=== PATIENT | female | born 1975 | race Caucasian/White ===

== ENCOUNTER → 2019-12-17 18:29 | Outpatient (CLI) | payer BC, SELFPAY ==
--- NOTE | ~2019-12-17 | MM_ITS ---
EXAMINATION: MM screening [facility] BI w joanie HISTORY: Screening mammogram TECHNIQUE: Craniocaudal and mediolateral oblique 3-D tomosynthesis images were obtained and synthetic 2-D images were generated. CAD analysis was submitted and interpreted. COMPARISON: Comparison to multiple prior studies sequentially, with oldest reviewed study dated 02/2012. BREAST PARENCHYMAL COMPOSITION: There are scattered areas of fibroglandular density. FINDINGS: There is no evidence of suspicious mass, calcification, or architectural distortion to sugg est malignancy in either breast. There has been no suspicious interval change. IMPRESSION: 1. No mammographic evidence of malignancy. 2. Recommend routine screening mammography in one year. BI-RADS Category 1: Negative Reviewed, dictated and finalized at location A.
== END ==
PROVIDERS: Visit Provider Obstetrics & Gynecology
DX: Z12.31 Encounter for screening mammogram for malignant neoplasm of breast (principal)
CPT/HCPCS: 77063; 77067

== ENCOUNTER → 2021-04-18 16:13 | Outpatient (CLI) | payer BC, SELFPAY ==
--- NOTE | ~2021-04-18 | MM_ITS ---
EXAMINATION: MM screening [facility] BI w joanie HISTORY: Screening mammogram TECHNIQUE: Craniocaudal and mediolateral oblique 3-D tomosynthesis images were obtained and synthetic 2-D images were generated. CAD analysis was submitted and interpreted. COMPARISON: 12/17/2019, 11/20/2018, 11/10/2017 BREAST PARENCHYMAL COMPOSITION: There are scattered areas of fibroglandular density. FINDINGS: There is no evidence of suspicious mass, calcification, or architectural distortion to sugg est malignancy in either breast. There has been no suspicious interval change. IMPRESSION: 1. No mammographic evidence of malignancy. 2. Recommend routine screening mammography in one year. BI-RADS Category 1: Negative Reviewed, dictated and finalized at location A.
== END ==
PROVIDERS: PCP Internal Medicine; Visit Provider Obstetrics & Gynecology
DX: Z12.31 Encounter for screening mammogram for malignant neoplasm of breast (principal)
CPT/HCPCS: 77063; 77067

== ENCOUNTER 2022-01-28 12:27 | Outpatient (CLI) | payer BC, SELFPAY ==
--- NOTE | 2022-01-28 12:40 | ECG_ITS ---
Measurements Intervals [place] Rate: 98 P: 58 DC: 127 QRS: 38 QRSD: 81 T: 70 QT: 344 QTc: 440 Interpretive Statements SINUS RHYTHM WITHIN NORMAL LIMITS NO PREVIOUS ECG AVAILABLE FOR COMPARISON Electronically Signed On 01-28-2022 16:29:51 CDT by Jacinto Vizcaino M.D.
== END 2022-01-28 12:28 | disposition home or self-care (01) ==
LOC: ANHSURGERY 12:30
PROVIDERS: PCP Internal Medicine; Visit Provider Obstetrics & Gynecology
DX: N92.0 Excessive and frequent menstruation with regular cycle (principal); F17.200 Nicotine dependence, unspecified, uncomplicated; Z01.818 Encounter for other preprocedural examination
CPT/HCPCS: 36415; 86850; 86900; 86901; 93005

== ENCOUNTER 2022-02-05 00:20 | Day surgery (SDC) | payer BC, SELFPAY ==
[2022-01-25 13:06] VITALS: BMI 21.7
--- NOTE | 2022-01-25 13:07 | PC.NURSE ---
Addendum entered by June Zazueta RN 01/28/22 10:15: MAY TAKE BUDESONIDE WITH A SMALL SIP OF WATER THE MORNING OF SURGERY. MAY TAKE VALACYCLOVIR IF NEEDED. Original Note: Report to the Outpatient Waiting Room, entrance under the green pavilion located off [facility], at time _0730___ on date _02/05/22 . OR Time: . - You and your visitor will be asked a series of questions to screen for COVID 19 for your protection. - A mask is required within the hospital. Preoperative COVID Testing Requirements: No COVID Test needed if: (proof is required; if not received patient will have Rapid Test prior to entry) - Patient has received COVID Vaccine at least 14 days prior to procedure date or - Patient has positive COVID test result within last 90 days of surgery date. COVID Test needed if above criteria is not met If not COVID vaccinated a COVID test must be conducted within 72 hours of surgery and patient is asked to isolate self from time of testing until procedure. You will go to the [facility] for your COVID testing. The [facility] site is located at the corner of [address] [facility]. You will only be called if COVID results are positive and your surgeon may reschedule your elective surgery date. Patients may have clear liquids (water, carbonated beverages, clear teas, apple juice) until 3 hours prior to surgery with a maximum of 20 ounces. - No food from midnight until time of surgery - Infants may have breast milk until 4 hours before surgery, infant formula 6 hours prior to surgery. - Children will be allowed to drink immediately following surgery. If applicable, please bring a bottle or sippy cup to assist with drinking. Juice, water, soda, and popsicles are readily available. For infants on formula, please bring formula the day of surgery. Pacifiers are allowed. Take the following medications with a SIP of water the morning of surgery: SERTRALINE, XANAX AND PAIN PILL IF NEEDED Medications to discontinue per physician ____NONE Date to take last dose N/A Please no make-up, nail dutch, hairspray, perfume, deodorant, or body powder the day of surgery. No jewelry (including any body piercings) or valuables the day of surgery, leave them at home. Please take a shower or bath the night before, or the morning of, surgery with an antibacterial soap. Wear comfortable, loose fitting clothing. Children are encouraged to wear pajamas. - Jewelry must be removed prior to entering the operating room. Rings and piercings that are not removed may be cut off. - The hospital will not accept responsibility for valuables. - Please leave all valuables, including medications, at home the day of surgery. If you are going home after surgery, a licensed funeral car driver must drive you home. - NO public transportation without another adult. - We recommend that an adult stay with you for 24 hours following discharge. - We also recommend that you do not drive, make important decision, drink alcoholic beverages, or take any drugs that were not prescribed by your health care provider for at least 24 hours after your discharge time. For Pediatric surgeries, we recommend two adults accompany the child home (only one inside the building at this time). One visitor will be allowed to accompany the patient into the hospital. Patients visitor will be instructed to remain with patient at all times or leave the building. We will allow the visitor to come back to the postoperative area when patient is ready. Follow any additional instructions given to you from your surgeon. Telephone instructions given to __PATIENT and asked if any additional questions and then verbalized understanding. Patient advised to call surgeon office or pre surgery nurse liaison [phone] if any additional questions.
[2022-02-05] VITALS (10 sets, daily range): BP systolic 111–147; BP diastolic 66–89; PULSE 54–86; RESP 12–20; TEMP 36–36.9; O2SAT 96–100
--- NOTE | 2022-02-05 08:33 | WPDANESEPPF ---
Anes - Initial Pre Proc Eval Procedure: Operation Date: 02/05/22 09:30 Proposed Procedures p Total Laparoscopic Hysterectomy, Right Salpingo Oophorectomy - Rich Garcia MD Date/Time: 02/05/22 08:33 Surgeon: Rich Garcia MD Pre Op Diagnosis: menorrhaghia Patient Data Age: 46 Gender: F Height: 1.66 m Weight: 60 kg Allergies Allergy/AdvReac Type Severity Reaction Status Date / Time Sulfa (Sulfonamide Allergy Severe RASH Verified 01/25/22 12:54 Antibiotics) Home Medications Medication Instructions Recorded Confirmed Type budesonide 3 mg 6 mg PO DAILY 30 Days #60 ea 12/27/21 01/25/22 Rx capsule,delayed,extended release valacyclovir 500 mg tablet 500 mg PO PRN PRN tablet 12/27/21 01/25/22 History alprazolam 1 mg tablet 1 mg PO BID PRN 01/15/22 01/25/22 History hydrocodone 7.5 mg-acetaminophen 1 tablet PO BID PRN 01/15/22 01/25/22 History 300 mg tablet sertraline 50 mg PO DAILY 01/25/22 01/25/22 History amoxicillin 500 mg PO QID 02/05/22 02/05/22 History Patient hx anesthesia problems: none Family hx anesthesia problems: none Results Review: All pre-operative results and documents have been reviewed as part of the pre-operative evaluation. [facility] Past Medical History Medical History Anxiety Depression Encounter for screening colonoscopy Microscopic colitis Tobacco abuse Surgical History Surgical History H/O colonoscopy H/O esophagogastroduodenoscopy Family History Family History Mother Hypertension Heart disease Father Lung cancer Social History Social History Smoking packs per day: 1 Smoking cigarettes per day: 20.0 Years smoked: 25 Smoking pack-years: 25.00 Smoking status: Current every day smoker Tobacco type: cigarettes Second hand tobacco smoke exposure: Yes Alcohol intake: current Alcohol use details: social Substance use: never Substance use type: marijuana Other substance usage details: DAILY Last use: 01/24/22 Living arrangements: alone Gender identity (if verbalized by the patient): Female Anes - Eval Final PreProcedure Day of Procedure 02/05/22 08:33 Results Review: All pre-operative results and documents have been reviewed as part of the pre-operative evaluation. Informed Consent: The patient's anesthetic plan and its attendant risks and benefits were discussed with the patient/family/POA. Questions were solicited and answers provided to the satisfaction of the patient/family/POA.
[2022-02-05] MEDS: ACETAMINOPHEN 500 MG TABLET 1000 MG PO (08:34)
[2022-02-05] MEDS: KETOROLAC 15 MG/ML VIAL (*BKC) IV PUSH (08:35)
[2022-02-05] MEDS: LACTATED RINGERS 1,000 ML 30 ML IV CONT ×2 (08:44→10:15)
--- NOTE | 2022-02-05 08:51 | WPDHPUPDATE1 ---
History and Physical Update Update Date/Time: 02/05/22 08:51 History and Physical has been reviewed, including an updated exam of the patient. There are NO changes in the patient's condition. Risks, benefits, and alternatives have been discussed and questions answered. Patient agrees to proceed with procedure.
[2022-02-05] MEDS: ceFAZolin 2 GM/D5W 50 ML 2 GM/50 ML BAG IVPB (08:59)
[2022-02-05] MEDS: ceFAZolin SODIUM 1 GM VIAL IRRIGATION (09:36)
--- NOTE | 2022-02-05 10:07 | W.PM.PROC2 ---
Procedure Note - Detailed Date of Procedure 02/05/22 Pre-op Diagnosis menorrhaghia, fibroids Post-op Diagnosis Same Procedure Performed Total laparoscopic hysterectomy. Bilateral salpingectomy and right oophorectomy Surgeon Rich Garcia MD Anesthesia General Indications Myomas and menorrhagia Findings Enlarged fibroid uterus, normal vulva vagina and cervix. Normal appearing ovaries bilaterally, normal-appearing tubes. Description of Procedure This patient was taken to the operating room. She was prepped and draped in the dorsal lithotomy position after induction of general anesthesia. The uterine manipulator and Amy cup were placed. This was done with a speculum and tenaculum. The speculum was placed. The cervix was grasped with a tenaculum. The stay sutures were placed at 3 and 9:00 a.m.. The stay sutures of 0 Vicryl were brought through the appropriately sized Amy cup. The tip of the LUZMA manipulator was placed in the intrauterine cavity. The cup was slid into place around the cervix and into the fornices. It was locked into place. The sutures were then wrapped around the handle and tied under tension. A 5 mm skin incision was made in the left upper quadrant the abdomen. A 5 mm trocar was inserted into the intrauterine cavity under direct visualization of the scope. Pneumoperitoneum was achieved. A left lower quadrant 11 mm incision was made with scalpel. An 11 mm trocar was inserted into the anterior abdominal cavity under direct visualization the scope. A 5 mm infraumbilical incision was made with a scalpel and a 5 mm trocar was inserted the intra-abdominal cavity under direct visualization of the scope. Bilateral ureteral lysis was performed. This was done from the pelvic brim down to the uterine artery. This was done with careful dissection using sharp and blunt dissection. The fallopian tubes were removed bilaterally. The mesosalpinx around the fallopian tubes were cauterized transected with LigaSure cautery. This was done in a bilateral fashion from the ovary to the uterine cornua. The fallopian tube was transected at the uterine cornu and amputated. The tube was taken out the left lower quadrant trocar site. The right ovary was removed. The infundibulopelvic ligaments cauterized. The para ovarian tissue was cauterized. The ovary remained attached to the uterus. It came out with the uterus and cervix. In a stepwise fashion along the lateral aspects of the uterus the round ligament and broad ligaments were cauterized transected down to the level of the uterine arteries. A bladder flap was created in the bladder was moved distally to the end of the cervix and over the Amy cup. The bilateral uterine arteries were cauterized and transected. Colpotomy was then performed. In a circumferential fashion the vagina was transected using unipolar cautery. The incision was made down on the Amy cup. The uterus and cervix were taken out through the vagina. A pneumo occluder was placed in the vagina. The vaginal cuff was closed with a 0 V lock suture in a running fashion. The pelvis was irrigated with copious amounts antibiotic irrigation. The ureters were again examined and found to be intact and flowing freely under the uterine arteries into the bladder. The bladder was intact. It was examined directly. The vagina was irrigated with Betadine solution after removal of the Pneumo occluder. The patient was taken to recovery room. She was stable condition. Sponge lap and needle counts were correct x2. Estimated Blood Loss 30 Drains Yes Packing No Pathology Yes Complications No immediate complications Condition Stable Disposition Floor
[2022-02-05] MEDS: fentaNYL CITRATE INJ (*CRX) 100 MCG/2 ML VIAL 25 MCG IV PUSH ×8 (10:33→11:16)
--- NOTE | 2022-02-05 11:38 | PC.NURSE ---
This patient, Karma Talbert, was received from PACU on 02/05/22 at 1138. Patient/family oriented to unit policies and routines
[2022-02-05] MEDS: KETOROLAC 30 MG/ML VIAL (*BKC) IV PUSH ×2 (12:17→18:39)
[2022-02-05] MEDS: DEXTROSE 5%/0.45% SOD CHL 1,000 ML 125 ML IV CONT ×2 (12:17→19:10)
[2022-02-05] MEDS: HYDROcodone/acetaminophen (*CRX) 10-325 MG TABLET 1 TAB PO ×3 (12:18→20:12)
[2022-02-05] MEDS: MORPHINE SULFATE (*CRX) 2 MG/ML INJ IV PUSH ×3 (14:07→21:07)
[2022-02-06] MEDS: HYDROcodone/acetaminophen (*CRX) 10-325 MG TABLET 1 TAB PO ×2 (00:16→05:16)
[2022-02-06 00:24] VITALS: BP 108/62; PULSE 100; RESP 18; TEMP 36.8; O2SAT 98
[2022-02-06] MEDS: KETOROLAC 30 MG/ML VIAL (*BKC) IV PUSH (02:08)
[2022-02-06] MEDS: DEXTROSE 5%/0.45% SOD CHL 1,000 ML 125 ML IV CONT (04:03)
[2022-02-06 05:00] VITALS: BP 131/76; PULSE 98; RESP 18; TEMP 36.8; O2SAT 95
--- NOTE | 2022-02-06 07:33 | PM.GYNPNOP ---
UNIT SECY - A/P Postoperative Procedures: Procedures Operation Date: 02/05/22 09:30 Actual Procedure Side Surgeon p Total Laparoscopic Hysterectomy, Bilateral Salpingectomy, Right Oophorectomy Not Applicable Rich Garcia MD Postoperative day: 1 Postoperative status: doing well Postoperative plan: see orders Time Spent With Patient Time: Total time spent is greater than 50% in coordination of care (as documented) at patient's floor/unit and/or counseling patient: Time with patient: less than 15 minutes UNIT SEC[facility]- PN:Subj Post-Op Subjective Date/time seen: 02/06/22 07:33 Subjective: patient reports feeling better, patient has no complaints and pain is well controlled Exam Const: General: healthy appearing, comfortable and no acute distress Resp: Auscultation: clear to auscultation bilaterally, no rales, no rhonchi and no wheezes Cardio: Rate: regular rate Heart sounds: no click, no murmurs and no rubs GI: Inspection: non-distended Auscultation: normal bowel sounds Extrem: General: normal to inspection, no pedal edema and no calf tenderness UNIT SECY - PN: Obj Data Vital Signs Vital Signs: Vital Signs - 24 hr 02/05/22 08:30 02/05/22 10:15 02/05/22 10:30 Temperature 97.7 F 98.4 F Pulse Rate 86 60 56 L Respiratory Rate 18 19 16 Blood Pressure 111/66 119/78 127/79 Pulse Oximetry 100 100 98 02/05/22 10:45 02/05/22 11:00 02/05/22 11:15 Temperature Pulse Rate 56 L 55 L 55 L Respiratory Rate 14 12 12 Blood Pressure 134/78 121/76 121/78 Pulse Oximetry 96 98 97 02/05/22 11:25 02/05/22 11:53 02/05/22 15:50 Temperature 97.3 F L 96.8 F L Pulse Rate 58 L 54 L 60 Respiratory Rate 12 18 18 Blood Pressure 136/77 117/77 147/89 H Pulse Oximetry 98 100 02/05/22 19:15 02/06/22 00:24 02/06/22 05:00 Temperature 98.1 F 98.3 F 98.3 F Pulse Rate 81 100 98 Respiratory Rate 20 18 18 Blood Pressure 147/88 H 108/62 131/76 Pulse Oximetry 100 98 95 Intake/Output Intake/Output: Intake & Output 02/03/22 02/04/22 02/05/22 02/06/22 23:59 23:59 23:59 23:59 Intake Total 1950 1150 Output Total 435 375 Balance 1515 775 Meds/Results Medications: Active Medications Generic Name Dose Route Start Last Admin Trade Name Freq PRN Reason Stop Dose Admin Hydrocodone Bitart/Acetaminophen 1 tab 02/05/22 11:26 Hydrocodone/Acetaminophen (*Crx) 5-325 Mg Tablet PO Q3H PRN Pain Rated 5 or Less Hydrocodone Bitart/Acetaminophen 1 tab 02/05/22 11:26 02/06/22 05:16 Hydrocodone/Acetaminophen (*Crx) 10-325 Mg Tablet PO 1 tab Q3H PRN Administration Pain Rated 6 or Greater Dextrose/Sodium Chloride 1,000 mls @ 125 mls/hr 02/05/22 11:26 02/06/22 04:03 Dextrose 5% Sodium Chloride 0.45% IV CONT 125 mls/hr .Q8H KELIN Administration Ibuprofen 600 mg 02/05/22 11:26 Ibuprofen 600 Mg Tablet PO Q6H PRN Cramping Ketorolac Tromethamine 30 mg 02/05/22 11:26 02/06/22 02:08 Ketorolac 30 Mg/Ml Vial (*Bkc) IV PUSH 02/10/22 11:25 30 mg Q6H PRN Administration Pain Rated 4-6 Morphine Sulfate 2 mg 02/05/22 13:55 02/05/22 21:07 Morphine Sulfate (*Crx) 2 Mg/Ml Inj IV PUSH 2 mg Q2H PRN Administration Pain Rated 7-10 Ondansetron HCl 4 mg 02/05/22 11:26 Ondansetron Inj 4 Mg/2 Ml Vial IV PUSH Q6H PRN Nausea And Vomiting
[2022-02-06 07:55] VITALS: BP 105/70; PULSE 102; RESP 16; TEMP 36.2; O2SAT 100
[2022-02-06] MEDS: HYDROcodone/acetaminophen (*CRX) 5-325 MG TABLET 1 TAB PO (09:09)
[2022-02-06] MEDS: IBUPROFEN 600 MG TABLET PO (09:10)
[2022-02-06 10:00] VITALS: PULSE 102; RESP 16; O2SAT 100
--- NOTE | 2022-02-06 12:30 | WPDANESPN ---
Anes - Prog Note Post-Op Date/Time: 02/06/22 12:30 Cardiovascular status: normal Respiratory status: normal Airway patency: baseline Mental status: baseline Post-Op hydration status: normal Vital Signs: Last Vital Signs Temp 97.1 F L 02/06/22 07:55 Pulse 102 H 02/06/22 10:00 Resp 16 02/06/22 10:00 BP 105/70 02/06/22 07:55 Pulse Ox 100 02/06/22 10:00 Pain Score (VAS): 2/10 I/O: Intake & Output 02/05/22 02/06/22 02/06/22 23:59 07:59 15:59 Intake Total 1100 1150 240 Output Total 200 575 250 Balance 900 575 -10 Post-procedural complaints: none Patient Feedback: Patient satisfied with anesthetic care.
== END 2022-02-06 10:40 | disposition home or self-care (01) ==
LOC: ANHSURGERY 07:46 → ANHOB2 11:27
PROVIDERS: PCP Internal Medicine; Visit Provider Obstetrics & Gynecology
PROC: 0UT9FZZ Resection of Uterus, Via Natural or Artificial Opening With Percutaneous Endoscopic Assistance (ICD-10-PCS; CPT 58552; principal; 2022-02-05 09:30)
DX: N92.0 Excessive and frequent menstruation with regular cycle (principal); D25.1 Intramural leiomyoma of uterus; D25.0 Submucous leiomyoma of uterus; D25.2 Subserosal leiomyoma of uterus; N83.11 Corpus luteum cyst of right ovary
CPT/HCPCS: 58552; 88307; 99199; A9270; J0690; J1100; J1885; J2250; J2270; J2405; J2704; J2710; J3010; J7120

== ENCOUNTER → 2022-05-08 14:12 | Outpatient (CLI) | payer BC, SELFPAY ==
--- NOTE | ~2022-05-08 | MM_ITS ---
EXAMINATION: MM screening [facility] BI w joanie HISTORY: Screening TECHNIQUE: Craniocaudal and mediolateral oblique 3-D tomosynthesis images were obtained and synthetic 2-D images were generated. CAD analysis was submitted and interpreted. COMPARISON: Comparison to multiple prior studies sequentially, with oldest reviewed study dated 02/2012. BREAST PARENCHYMAL COMPOSITION: There are scattered areas of fibroglandular density. FINDINGS: There is no evidence of suspicious mass, calcification, or architectural distortion to sugg est malignancy in either breast. There has been no suspicious interval change. IMPRESSION: 1. No mammographic evidence of malignancy. 2. Recommend routine screening mammography in one year. BI-RADS Category 1: Negative Reviewed, dictated and finalized at location A.
== END ==
PROVIDERS: PCP Obstetrics & Gynecology; Visit Provider Obstetrics & Gynecology
DX: Z12.31 Encounter for screening mammogram for malignant neoplasm of breast (principal)
CPT/HCPCS: 77063; 77067

== ENCOUNTER 2023-06-04 10:06 | Outpatient (CLI) | payer OTHER, SELFPAY ==
--- NOTE | ~2023-06-04 | MM_ITS ---
EXAMINATION: MM screening [facility] BI w joanie HISTORY: Screening mammogram TECHNIQUE: Craniocaudal and mediolateral oblique 3-D tomosynthesis images were obtained and synthetic 2-D images were generated. CAD analysis was submitted and interpreted. COMPARISON: 05/08/2022, 04/18/2021, 12/17/2019 BREAST PARENCHYMAL COMPOSITION: There are scattered areas of fibroglandular density. FINDINGS: No suspicious mass, calcification, or architectural distortion are identified in either kari ast to suggest malignancy. There has been no suspicious interval change. IMPRESSION: 1. No mammographic evidence of malignancy. 2. Recommend routine screening mammography in one year. BI-RADS Category 1: Negative Reviewed, dictated and finalized at location A.
== END 2023-06-04 10:07 | disposition home or self-care (01) ==
LOC: ANHIMG 10:11
PROVIDERS: PCP Obstetrics & Gynecology; Visit Provider Obstetrics & Gynecology
DX: Z12.31 Encounter for screening mammogram for malignant neoplasm of breast (principal)
CPT/HCPCS: 77063; 77067